=== PATIENT | female | born 1965 | race Caucasian/White ===

== ENCOUNTER 2017-02-15 15:39 | Inpatient (IN) | payer MEDICAID ==
[2017-02-15] MEDS ORDERED: HYDROmorphone 1 MG/ML Syringe IM ONE (16:14)
[2017-02-15] MEDS ORDERED: HYDROmorphone 1 MG/ML Syringe ONE (16:15)
--- NOTE | 2017-02-15 16:53 | EDM.PDOC ---
[id number] 4d ABD PAIN Time Seen by Provider: 02/15/17 16:20 Source: Reports: Patient History Limitations: Reports: No limitations - History of Present Illness INITIAL COMMENTS - FREE TEXT/NARRATIVE: 51-year-old female with intense lower abdominal pain after lifting her 5-year- old grandchild and feeling a sudden sharp pain in her lower anterior abdomen. She was lifting weights yesterday and felt a slight pull but it was tolerable. No nausea or vomiting. 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 bleeding, Musculoskeletal History: Reports: Fracture, Osteoarthritis Neurological History: Reports: Concussion Psychiatric History: Reports: Anxiety, Depression, Panic attack Hematologic History: Reports: Blood transfusion(s) - Infectious Disease History Infectious Disease History: Reports: Chicken pox - Past Surgical History HEENT Surgical History: Reports: None Cardiovascular Surgical History: Reports: None GI Surgical History: Reports: Colonoscopy Female Surgical History: Reports: None Neurological Surgical History: Reports: None Musculoskeletal Surgical History: Reports: None, Other (see below) Other Musculoskeletal Surgeries/Procedures:: Femur pin/screw Social & Family History - Tobacco Use Smoking Status *Q: Never Smoker Years of Tobacco use: 20 Packs/Tins Daily: 0.5 - Caffeine Use Caffeine Use: Reports: Coffee - Alcohol Use Days Per Week of Alcohol Use: 2 Number of Drinks Per Day: 2 Total Drinks Per Week: 4 - Recreational Drug Use Recreational Drug Use: No ED ROS GENERAL - Review of Systems Review Of Systems: See Below Constitutional: Denies: fever, chills Respiratory: Denies: Shortness of Breath, Cough Cardiovascular: Denies: Chest pain GI/Abdominal: Reports: Abdominal pain, Mucous in stool. Denies: Nausea, Vomiting Skin: Reports: no symptoms ED EXAM, GI/ABD - Physical Exam Exam: See Below Exam Limited By: No limitations General Appearance: alert, severe distress Respiratory/Chest: no respiratory distress, lungs clear Cardiovascular: regular rate, rhythm GI/Abdominal: other (Severe palpation tenderness to the right lower abdomen with some firmness) Neurological: alert, oriented Psychiatric: anxious Skin Exam: Warm, Dry Course - Vital Signs Last Recorded V/S: Last Vital Signs Temp 98.9 F 02/16/17 03:30 Pulse 68 02/16/17 03:30 Resp 18 02/16/17 03:30 BP 150/95 H 02/16/17 03:30 Pulse Ox 98 02/16/17 03:30 - Orders/Labs/Meds Orders: Active Orders 24 hr Category Date Time Status Abdomen Pelvis w Cont [CT] Stat Exams 02/15/17 16:52 Taken Medication Orders Hydromorphone HCl (Dilaudid Reverser 15 Mg In Ns 30 Ml) 0 mg IV ASDIRECTED PRN; Protocol PRN 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 Last Admin: 02/15/17 19:42 Dose: 15 mg Dextrose/Lactated Ringer's (Dextrose 5%-Lactated Ringers) 1,000 mls @ 200 mls/ hr IV ASDIRECTED JODIE Last Admin: 02/16/17 05:23 Dose: 200 mls/hr Infusion: 02/16/17 05:20 Dose: 200 mls/hr Admin: 02/16/17 00:20 Dose: 200 mls/hr Naloxone HCl (Narcan) 0.1 mg IV ASDIRECTED PRN PRN Reason: decreased respiratory rate Labs: Laboratory Tests 02/15/17 02/15/17 Range/Units 16:15 16:15 WBC 13.1 H (4.5-11.0) K/uL RBC 3.97 (3.30-5.50) M/uL Hgb 12.2 (12.0-15.0) g/dL Hct 37.4 (36.0-48.0) % MCV 94 (80-98) fL MCH 31 (27-31) pg MCHC 33 (32-36) % Plt Count 398 (150-400) K/uL Neut % (Auto) 74 H (36-66) % Lymph % (Auto) 18 L (24-44) % [place] % (Auto) 6 (2-6) % Eos % (Auto) 1 L (2-4) % Baso % (Auto) 1 (0-1) % Sodium 140 (140-148) mmol/L Potassium 3.5 L (3.6-5.2) mmol/L Chloride 102 (100-108) mmol/L Carbon Dioxide 25 (21-32) mmol/L Anion Gap 16.5 H (5.0-14.0) mmol/L BUN 24 H (7-18) mg/dL Creatinine 1.0 (0.6-1.0) mg/dL Est Cr Clr Drug Dosing 70.76 mL/min Estimated GFR (MDRD) 58 L (>60) Glucose 119 H (74-106) mg/dL Calcium 8.6 (8.5-10.1) mg/dL Meds: Medications Generic Name Dose Route Start Last Admin Trade Name Freq PRN Reason Stop Dose Admin Hydromorphone HCl 0 mg 02/15/17 19:21 02/15/17 19:42 Dilaudid Reverser 15 Mg In Ns 30 Ml IV 15 mg ASDIRECTED PRN Administration PLASTIC PROCESS 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 CONTROL Protocol Dextrose/Lactated Ringer's 1,000 mls @ 200 mls/hr 02/15/17 19:30 02/16/17 05: 23 Dextrose 5%-Lactated Ringers IV 200 mls/hr ASDIRECTED JODIE Administration Naloxone HCl 0.1 mg 02/15/17 19:21 Narcan IV ASDIRECTED PRN decreased respiratory rate Discontinued Medications Generic Name Dose Route Start Last Admin Trade Name Lin PRN Reason Stop Dose Admin Hydromorphone HCl 1 mg 02/15/17 16:14 02/15/17 16:17 Dilaudid IM 02/15/17 16:15 1 mg ONETIME ONE Administration Hydromorphone HCl Confirm 02/15/17 16:15 02/15/17 19:41 Dilaudid Administered 02/15/17 16:16 Not Given Dose 1 mg .ROUTE .STK-MED ONE Sodium Chloride 75 mls @ 3 mls/sec 02/15/17 16:57 02/15/17 17:08 Normal Saline IV 02/15/17 16:58 3 mls/sec ONETIME ONE Administration Iopamidol 114 ml 02/15/17 17:00 02/15/17 17:09 Isovue-300 (61%) IV 150 ml . DIRECTED JODIE Administration Sodium Chloride 10 ml 02/15/17 16:57 02/15/17 17:09 Saline Flush FLUSH 10 ml ONETIME PRN Administration PER RADIOLOGY PROTOCOL - Re-Assessments/Exams Free Text/Narrative Re-Assessment/Exam: 02/15/17 17:52 1 mg of IM Dilaudid was given which gave the patient marked improvement of pain. A CT scan with IV contrast was then done of the lower abdomen which confirmed a rectus abdominal hematoma with a small amount of evidence of continued hemorrhage. These findings were discussed with Dr. Moises Cortes, and he agreed to accept the patient on admission and we'll reevaluate tomorrow morning. She'll be placed as an inpatient with a PLASTIC PROCESS TECHNICIAN for pain control and repeat CBC tomorrow morning, kept n.p.o. after midnight. Departure - Departure Time of Disposition: 19:01 Disposition: Admitted As Inpatient 66 Condition: fair Clinical Impression: Rectus sheath hematoma Qualifiers: Encounter type: initial encounter Qualified Code(s): S30.1XXA - Contusion of abdominal wall, initial encounter - My Orders Last 24 Hours: My Active Orders 02/15/17 16:52 Abdomen Pelvis w Cont [CT] Stat - Assessment/Plan Last 24 Hours: My Active Orders 02/15/17 16:52 Abdomen Pelvis w Cont [CT] Stat
[2017-02-15] MEDS ORDERED: Sodium Chloride 0.9% 10 ML Syringe FLUSH PRN (16:57)
[2017-02-15] MEDS ORDERED: Sodium Chloride 0.9% 75 ML IV ONE (16:57)
[2017-02-15] MEDS ORDERED: Iopamidol 612 MG/ML 150 ML Bottle IV SCH (17:00)
[2017-02-15] MEDS ORDERED: HYDROmorphone/Normal Saline 15 MG/30 ML PCA IV PRN (19:21)
[2017-02-15] MEDS ORDERED: Naloxone 0.4 MG/ML SDV IV PRN (19:21)
[2017-02-16] MEDS: Dextrose 5%-Lactated Ringers 1,000 ML IV SCH ×2 (00:20→05:23)
[2017-02-16] MEDS ORDERED: HYDROmorphone 2 MG Tab PO PRN (08:10)
[2017-02-16 09:03] VITALS: BP 136/85
--- NOTE | 2017-02-17 14:38 | DISCH ---
FINAL DIAGNOSIS: Right rectus hematoma. SECONDARY DIAGNOSIS: 1. History of hypertension. 2. History of gastroesophageal reflux disease. 3. History of dysfunctional uterine bleeding. OPERATIVE PROCEDURES: None. HOSPITAL COURSE: This is a 51-year-old who by history yesterday developed a spontaneous rectus hematoma after lifting her grandchild. This has temporarily subsided, but then became quite severe in terms of pain yesterday and presented to the emergency room. CT scan was obtained, which showed a right rectus hematoma. There was some arterial blush on the CT scan, indicating some ongoing bleeding. This has stopped. Presently, her hemoglobin is 10.7, and she appears to be completely comfortable. There is some vague fullness in the right lower rectus muscle, and the plan at this point will be to discharge home. She will be instructed to stay off work until after the appointment this coming Saturday and avoid vigorous activity or heavy lifting, and in the meantime, she is to report to emergency room once again if she develops severe pain once again, at which time we would likely proceed with limited operation and control of bleeding. Otherwise, she will be following up with Dr. Cortes in [facility] on 02/20/2017 with a hemoglobin and hematocrit to be obtained at that time.
== END 2017-02-16 09:59 | disposition home or self-care (01) | DRG 605 ==
LOC: JP.ED 15:39 → JP.2SS 18:23
PROVIDERS: ADMIT Surgery; ATTEND Surgery
DX: S30.1XXA Contusion of abdominal wall, initial encounter (principal); I10 Essential (primary) hypertension; K21.9 Gastro-esophageal reflux disease without esophagitis; N93.8 Other specified abnormal uterine and vaginal bleeding; M19.90 Unspecified osteoarthritis, unspecified site; F41.8 Other specified anxiety disorders
CPT/HCPCS: 36415; 74177; 80048; 85025; 94762; 96372; 99285-25; A9270-GY; J1170; J7030; J7042; J7050

== ENCOUNTER 2017-04-10 13:48 | Emergency (ER) | payer MEDICAID ==
[2017-04-10] MEDS ORDERED: LORazepam 0.5 MG Tab PO ONE (14:19)
--- NOTE | 2017-04-10 14:23 | EDM.PDOC ---
ED HPI GENERAL MEDICAL PROBLEM - General Chief Complaint: Cardiovascular Problem Stated Complaint: SIDE-EFFECTS OF MEDS, HEART PALPITATIONS Time Seen by Provider: 04/10/17 14:10 Source of Information: Reports: Patient, RN Notes Reviewed History Limitations: Reports: No Limitations - History of Present Illness INITIAL COMMENTS - FREE TEXT/NARRATIVE: 51-year-old female presents emergency department today with concern for palpitations and medication side effect she recently started on voltarin for arthritic knee pain, states she stopped taking the medication last night she feels as though she's having heart palpitations she is concerned about anxiety as well no nausea vomiting or shortness of breath or chest pain - Related Data Allergies Allergy/AdvReac Type Severity Reaction Status Date / Time No Known Allergies Allergy Verified 08/29/16 10:26 Home Meds: Home Meds Hydrochlorothiazide [Hydrochlorothiazide] 25 mg PO DAILY 02/15/17 [History] buPROPion [Wellbutrin SR] 150 mg PO ASDIRECTED 02/15/17 [History] Diclofenac Sodium [Diclofenac Sodium] 75 mg PO BID 04/10/17 [History] Past Medical History HEENT History: Reports: Impaired Vision Cardiovascular History: Reports: Hypertension Gastrointestinal History: Reports: Colon Polyp, GERD 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: 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, Musculoskeletal History: Reports: Arthritis Neurological History: Reports: Concussion Psychiatric History: Reports: Anxiety, Depression, Panic Attack Hematologic History: Reports: Blood Transfusion(s) - Infectious Disease History Infectious Disease History: Reports: Chicken Pox - Past Surgical History Cardiovascular Surgical History: Reports: None Female Surgical History: Reports: None Neurological Surgical History: Reports: None Musculoskeletal Surgical History: Reports: Other (See Below) Other Musculoskeletal Surgeries/Procedures:: femer surgery Social & Family History - Family History Family Medical History: Noncontributory - Tobacco Use Smoking Status *Q: Light Tobacco Smoker Years of Tobacco use: 20 Packs/Tins Daily: 0.1 - Caffeine Use Caffeine Use: Reports: Coffee, Soda - Alcohol Use Days Per Week of Alcohol Use: 2 Number of Drinks Per Day: 2 Total Drinks Per Week: 4 - Recreational Drug Use Recreational Drug Use: No ED ROS GENERAL - Review of Systems Review Of Systems: See Below Constitutional: Reports: No Symptoms HEENT: Reports: No Symptoms Respiratory: Reports: No Symptoms Cardiovascular: Reports: Palpitations GI/Abdominal: Reports: No Symptoms : Reports: No Symptoms Musculoskeletal: Reports: No Symptoms Skin: Reports: No Symptoms Neurological: Reports: No Symptoms ED EXAM, GENERAL - Physical Exam Exam: See Below Exam Limited By: No Limitations General Appearance: Alert, WD/WN, No Apparent Distress Head: Atraumatic, Normocephalic Neck: Normal Inspection, Supple, Non-Tender, Full Range of Motion Respiratory/Chest: No Respiratory Distress, Lungs Clear, Normal Breath Sounds, No Accessory Muscle Use Cardiovascular: Regular Rate, Rhythm, No Murmur Course - Vital Signs Last Recorded V/S: Last Vital Signs Temp 97.5 F 04/10/17 14:05 Pulse 72 04/10/17 15:27 Resp 14 04/10/17 15:27 BP 133/37 L 04/10/17 15:27 Pulse Ox 97 04/10/17 15:27 - Orders/Labs/Meds Orders: Active Orders 24 hr Category Date Time Status EKG Documentation Completion [RC] ASDIRECTED Care 04/10/17 14:21 Active EKG 12 Lead [EK] Stat Ther 04/10/17 14:20 Ordered Labs: Laboratory Tests 04/10/17 04/10/17 Range/Units 14:19 14:19 WBC 6.3 (4.5-11.0) K/uL RBC 4.06 (3.30-5.50) M/uL Hgb 12.5 D (12.0-15.0) g/dL Hct 38.4 (36.0-48.0) % MCV 95 (80-98) fL MCH 31 (27-31) pg MCHC 33 (32-36) % Plt Count 313 (150-400) K/uL Neut % (Auto) 61 (36-66) % Lymph % (Auto) 30 (24-44) % [place] % (Auto) 6 (2-6) % Eos % (Auto) 2 (2-4) % Baso % (Auto) 1 (0-1) % Sodium 142 (140-148) mmol/L Potassium 3.8 (3.6-5.2) mmol/L Chloride 105 (100-108) mmol/L Carbon Dioxide 30 (21-32) mmol/L Anion Gap 7.4 (5.0-14.0) mmol/L BUN 20 H (7-18) mg/dL Creatinine 0.9 (0.6-1.0) mg/dL Est Cr Clr Drug Dosing 77.28 mL/min Estimated GFR (MDRD) > 60 (>60) Glucose 99 (74-106) mg/dL Calcium 8.6 (8.5-10.1) mg/dL Meds: Medications Discontinued Medications Generic Name Dose Route Start Last Admin Trade Name Lin PRN Reason Stop Dose Admin Clonazepam 0.5 mg 04/10/17 14:36 04/10/17 14:44 Klonopin PO 04/10/17 14:37 0.5 mg ONETIME ONE Administration Hydroxyzine HCl 25 mg 04/10/17 14:24 04/10/17 14:45 Atarax PO 04/10/17 14:25 Not Given ONETIME ONE Lorazepam 0.5 mg 04/10/17 14:19 04/10/17 14:45 Ativan PO 04/10/17 14:20 Not Given ONETIME ONE Departure - Departure Time of Disposition: 15:34 Disposition: Home, Self-Care 01 Condition: Good Clinical Impression: Premature ventricular contraction Forms: ED Department Discharge Additional Instructions: Try diluting your caffeine injection, Please followup with your primary care provider in 3-5 days if not better, please call return to the emergency department with worsening of symptoms. - My Orders Last 24 Hours: My Active Orders 04/10/17 14:20 EKG 12 Lead [EK] Stat 04/10/17 14:21 EKG Documentation Completion [RC] ASDIRECTED - Assessment/Plan Last 24 Hours: My Active Orders 04/10/17 14:20 EKG 12 Lead [EK] Stat 04/10/17 14:21 EKG Documentation Completion [RC] ASDIRECTED Plan: Assessment Acuity = acute Site and laterality = palpitations Etiology = probably related to PVCs Manifestations = none Location of injury = home Lab values = CBC, BMP unremarkable EKG shows sinus rhythm with multiple PVCs Plan I did discuss lab results and EKG results with her she did admit to a moderate amount of caffeine ingestion, I'm going to provide her with information on PVCs have follow-up with her primary care in 3-5 days if no improvement will have her stop the Voltaren for now Patient was in agreement with the plan all questions were answered, they were instructed to return to the emergency department or call for worsening symptoms. This note was dictated using [employer] voice recognition software please call with any questions.
[2017-04-10] MEDS ORDERED: hydrOXYzine HCl 25 MG Tab PO ONE (14:24)
[2017-04-10] MEDS ORDERED: ClonazePAM 0.5 MG Tab PO ONE (14:36)
[2017-04-10 15:28] VITALS: BP 133/37
== END 2017-04-10 15:48 | disposition home or self-care (01) ==
LOC: JP.ED 13:48
DX: I49.3 Ventricular premature depolarization (principal); F17.210 Nicotine dependence, cigarettes, uncomplicated; I10 Essential (primary) hypertension; K21.9 Gastro-esophageal reflux disease without esophagitis; F41.9 Anxiety disorder, unspecified; F32.9 Major depressive disorder, single episode, unspecified; Z98.890 Other specified postprocedural states; Z79.899 Other long term (current) drug therapy
CPT/HCPCS: 36415; 80048; 85025; 93005; 99284; A9270

== ENCOUNTER 2019-06-09 12:21 | Emergency (ER) | payer MEDICAID ==
[2019-06-09] MEDS ORDERED: EPINEPHrine 1 MG/ML SDV SUBCUT ONE (12:28)
[2019-06-09] MEDS ORDERED: Sodium Chloride 0.9% 10 ML Syringe FLUSH PRN (12:28)
[2019-06-09] MEDS ORDERED: diphenhydrAMINE 50 MG/ML SDV IVPUSH ONE (12:29)
[2019-06-09] MEDS ORDERED: methylPREDNISolone Sodium Succinate 125 MG/2 ML SDV IVPUSH ONE (12:29)
--- NOTE | 2019-06-09 12:47 | EDM.PDOC ---
ED HPI GENERAL MEDICAL PROBLEM - General Chief Complaint: Bite:Animal, Insect Stated Complaint: BEE STING Time Seen by Provider: 06/09/19 12:30 Source of Information: Reports: Patient History Limitations: Reports: No Limitations - History of Present Illness INITIAL COMMENTS - FREE TEXT/NARRATIVE: 53-year-old female without any previous systemic allergic reactions to bee stings, was stung on the back of the right hand less than one half hour prior to coming into the emergency room. She has diffuse erythema, hives formation and itching. No shortness of breath. Onset: Sudden Duration: Hour(s): (Within the last hour) Associated Symptoms: Denies: Headaches, Loss of Appetite, Malaise, Nausea/ Vomiting, Shortness of Breath, Weakness Right Hand Pain Score (Numeric/FACES): 4 - Related Data Allergies Allergy/AdvReac Type Severity Reaction Status Date / Time bee venom protein (honey bee) Allergy Hives Verified 06/09/19 12:44 Home Meds: Home Meds Hydrochlorothiazide 25 mg PO DAILY 02/15/17 [History] Estradiol 0.5 mg PO DAILY 06/09/19 [History] metroNIDAZOLE [Metronidazole] 500 mg PO DAILY 06/09/19 [History] Past Medical History HEENT History: Reports: Impaired Vision Cardiovascular History: Reports: Hypertension Gastrointestinal History: Reports: Colon Polyp, GERD 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, Musculoskeletal History: Reports: Arthritis Neurological History: Reports: Concussion Psychiatric History: Reports: Anxiety, Depression, Panic Attack Hematologic History: Reports: Blood Transfusion(s) - Infectious Disease History Infectious Disease History: Reports: Chicken Pox - Past Surgical History Cardiovascular Surgical History: Reports: None Female Surgical History: Reports: None Neurological Surgical History: Reports: None Musculoskeletal Surgical History: Reports: Other (See Below) Other Musculoskeletal Surgeries/Procedures:: femer surgery Social & Family History - Family History Family Medical History: Noncontributory - Caffeine Use Caffeine Use: Reports: Coffee, Soda ED ROS GENERAL - Review of Systems Review Of Systems: See Below Constitutional: Denies: Fever, Chills HEENT: Reports: No Symptoms Respiratory: Reports: No Symptoms Cardiovascular: Denies: Chest Pain GI/Abdominal: Denies: Nausea, Vomiting Skin: Reports: Erythema, Urticaria Neurological: Denies: Headache Psychiatric: Reports: No Symptoms ED EXAM, ANIMAL BITE - Physical Exam Exam: See Below Exam Limited By: No Limitations General Appearance: Alert, No Apparent Distress, Anxious (Patient is anxious about her reaction but not distressed) Eye Exam: Bilateral Eye: Other (She has developed slight amount of periorbital edema) Throat/Mouth: Normal Inspection Head: Facial Swelling (Mild diffuse facial swelling is present) Respiratory/Chest: No Respiratory Distress, Lungs Clear Cardiovascular: Regular Rate, Rhythm, Tachycardia Extremities: Other (Diffuse erythema and urticaria of the extremities and trunk) Neurological: Alert, Oriented Psychiatric: Anxious Course - Vital Signs Last Recorded V/S: Last Vital Signs Temp 97.7 F 06/09/19 12:29 Pulse 91 06/09/19 12:56 Resp 18 06/09/19 12:56 BP 153/90 H 06/09/19 12:56 Pulse Ox 92 L 06/09/19 12:56 - Orders/Labs/Meds Orders: Active Orders 24 hr Category Date Time Status Saline Lock Insert [OM.PC] Routine Oth 06/09/19 12:28 Ordered Meds: Medications Discontinued Medications Generic Name Dose Route Start Last Admin Trade Name Lin PRN Reason Stop Dose Admin Diphenhydramine HCl 25 mg 06/09/19 12:29 06/09/19 12:37 Benadryl IVPUSH 06/09/19 12:30 25 mg ONETIME ONE Administration Epinephrine HCl 0.3 mg 06/09/19 12:28 06/09/19 12:32 Adrenalin SUBCUT 06/09/19 12:29 0.3 mg ONETIME ONE Administration Methylprednisolone Sodium Succinate 125 mg 06/09/19 12:29 06/09/19 12:40 Solu-Medrol IVPUSH 06/09/19 12:30 125 mg ONETIME ONE Administration Sodium Chloride 10 ml 06/09/19 12:28 06/09/19 12:41 Saline Flush FLUSH 10 ml ASDIRECTED PRN Administration Keep Vein Open - Re-Assessments/Exams Free Text/Narrative Re-Assessment/Exam: 06/09/19 12:46 Patient was given 0.3 mg of subcutaneous epinephrine, a saline lock was started and she was given 25 mg of IV Benadryl and 125 mg of IV Solu-Medrol. She remained stable. 06/09/19 13:10 Over the course of the next 30 minutes the patient markedly improved. She was given some fluids to drink, a note to be off work today, and a prescription for EpiPens to use in the future. Departure - Departure Time of Disposition: 13:40 Disposition: Home, Self-Care 01 Clinical Impression: Systemic reaction to bee sting Qualifiers: Encounter type: initial encounter Injury intent: accidental or unintentional Qualified Code(s): T63.441A - Toxic effect of venom of bees, accidental ( unintentional), initial encounter - Discharge Information Instructions: Bee, Wasp, or Hornet Sting, Adult Referrals: PCP,None [Primary Care Provider] - Forms: ED Department Discharge Care Plan Goals: Repeat Benadryl 50 mg every 4-6 hours for continued rash or itching. Return anytime if worsening such as difficulty breathing or swelling of the tongue or throat. Fill prescription for EpiPen and use as directed. - My Orders Last 24 Hours: My Active Orders 06/09/19 12:28 Saline Lock Insert [OM.PC] Routine - Assessment/Plan Last 24 Hours: My Active Orders 06/09/19 12:28 Saline Lock Insert [OM.PC] Routine
[2019-06-09 12:57] VITALS: BP 153/90; PULSE 91
== END 2019-06-09 13:35 | disposition home or self-care (01) ==
LOC: JP.ED 12:21
DX: T63.441A Toxic effect of venom of bees, accidental (unintentional), initial encounter (principal); I10 Essential (primary) hypertension; Z79.899 Other long term (current) drug therapy; Z91.030 Bee allergy status
CPT/HCPCS: 96372; 96374; 96375; 99282; J0171; J1200; J2930

== ENCOUNTER 2020-12-05 07:38 | Inpatient (IN) | payer MEDICAID ==
[~2020-12-05 07:38] MED LIST: Midazolam 1 MG/ML 2 ML SDV ONE; Propofol 200 MG/20 ML SDV ONE; fentaNYL 100 MCG/2 ML SDV ONE
[2020-12-05] MEDS: Nozin Nasal Sanitizer NASBOTH SCH ×3 (08:10→20:38)
[2020-12-05] MEDS ORDERED: Lactated Ringers 1,000 ML IV SCH (08:15)
[2020-12-05] MEDS ORDERED: Lactated Ringers 500 ML IV ONE (08:30)
[2020-12-05] MEDS ORDERED: Povidone-Iodine 10% Soln 118.25 ML Bottle ONE (08:48)
[2020-12-05] MEDS ORDERED: ceFAZolin 2 GM in Premix Bag 1 BAG IV ONE (09:00)
[2020-12-05] MEDS ORDERED: diphenhydrAMINE 50 MG/ML SDV ONE (09:58)
[2020-12-05] MEDS ORDERED: Lactated Ringers 0 ML ONE (10:18)
[2020-12-05] MEDS ORDERED: Ondansetron 4 MG/2 ML SDV ONE (10:19)
[2020-12-05] MEDS ORDERED: Dexamethasone 4 MG/ML SDV ONE (10:19)
[2020-12-05] MEDS ORDERED: Lactated Ringers 1,000 ML ONE (10:19)
[2020-12-05] MEDS ORDERED: Famotidine 20 MG/2 ML SDV ONE (10:20)
[2020-12-05] MEDS ORDERED: fentaNYL 100 MCG/2 ML SDV ONE (10:33)
[2020-12-05] MEDS ORDERED: Midazolam 1 MG/ML 2 ML SDV ONE (10:33)
[2020-12-05] MEDS ORDERED: Propofol 200 MG/20 ML SDV ONE (11:06)
[2020-12-05] MEDS ORDERED: Acetaminophen 325 MG Tab PO PRN (11:49)
--- NOTE | 2020-12-05 12:47 | CR ---
Knee 1V or 2V Lt CLINICAL HISTORY: Postop arthroplasty FINDINGS: Patient is status post 3 component total arthroplasty. Components appear well seated. There is intra-articular and subcutaneous air. Patient is a fixation plate in the mid femur. IMPRESSION: STATUS post recent total left knee arthroplasty
[2020-12-05] MEDS: Sodium Chloride 0.9% 1,000 ML IV SCH ×2 (13:24→23:24)
[2020-12-05] MEDS: Acetaminophen/oxyCODONE 325-5 MG Tab PO PRN ×3 (14:26→23:21)
[2020-12-05] MEDS: Ketorolac 30 MG/ML SDV IVPUSH SCH ×2 (14:27→21:30)
[2020-12-05] MEDS: Morphine 2 MG/ML SYRINGE IVPUSH PRN ×5 (15:56→21:36)
[2020-12-05] MEDS: Docusate Sodium 100 MG Cap PO SCH (20:39)
[2020-12-05] MEDS ORDERED: Nozin Nasal Sanitizer NASBOTH SCH (21:00)
[2020-12-05] MEDS ORDERED: Calcium Carbonate 500 MG Tab.Chew PO PRN (21:13)
[2020-12-05] MEDS: ClonazePAM 0.5 MG Tab PO PRN (21:30)
[2020-12-06] MEDS: Acetaminophen/oxyCODONE 325-5 MG Tab PO PRN ×4 (03:09→23:41)
[2020-12-06] MEDS: Ketorolac 30 MG/ML SDV IVPUSH SCH ×3 (05:59→22:07)
[2020-12-06] MEDS: Acetaminophen/HYDROcodone 325-5 MG Tab PO PRN ×2 (07:10→11:36)
--- NOTE | 2020-12-06 08:46 | PCM.SURGPN ---
- General Info Date of Service: 12/06/20 Date of Surgery/Procedure: 12/05/20 POD#: 1 Post-Op Diagnosis: left knee osteoarthritis Functional Status: Reports: Pain Controlled, Tolerating Diet, Ambulating, Urinating - Review of Systems General: Reports: No Symptoms HEENT: Reports: No Symptoms Pulmonary: Reports: No Symptoms Cardiovascular: Reports: No Symptoms Gastrointestinal: Reports: No Symptoms Genitourinary: Reports: No Symptoms Musculoskeletal: Reports: Leg Pain (bilateral ), Joint Pain (left knee ) Psychiatric: Reports: Anxiety - Patient Data Vitals - Most Recent: Last Vital Signs Temp 97.4 F 12/06/20 03:10 Pulse 75 12/06/20 03:10 Resp 16 12/06/20 03:10 BP 152/75 H 12/06/20 03:10 Pulse Ox 100 12/06/20 03:10 Weight - Most Recent: 177 lb I&O - Last 24 Hours: Intake & Output 12/05/20 12/06/20 12/06/20 22:59 06:59 14:59 Intake Total 650 2800 Output Total 500 1275 Balance 150 1525 Lab Results Last 24 Hrs: Laboratory Results - last 24 hr 12/05/20 Range/Units 07:55 Blood Type O POSITIVE Gel Antibody Screen Negative Med Orders - Current: Current Medications Acetaminophen (Tylenol) 650 mg PO Q4H PRN PRN Reason: Pain/Fever Hydrocodone Bitart/Acetaminophen ([place] 325-5 Mg) 2 tab PO Q4H PRN PRN Reason: Pain (mild 1-3) Last Admin: 12/06/20 07:10 Dose: 2 tab Documented by: Bandage/Support Products ( Nasal Athletics Teacher) 1 applic NASBOTH BID [facility] Last Admin: 12/05/20 20:38 Dose: 1 applic Documented by: Bupropion HCl (Wellbutrin Xl) 300 mg PO DAILY [facility] Calcium Carbonate/Glycine (Tums) 1,000 mg PO Q2H PRN PRN Reason: Indigestion Last Admin: 12/05/20 21:29 Dose: 1,000 mg Documented by: Clonazepam (Klonopin) 0.5 mg PO BID PRN PRN Reason: Anxiety Last Admin: 12/05/20 21:30 Dose: 0.5 mg Documented by: Docusate Sodium (Colace) 100 mg PO BID [facility] Last Admin: 12/05/20 20:39 Dose: 100 mg Documented by: Enoxaparin Sodium (Lovenox) 30 mg SUBCUT DAILY [facility] Estradiol (Estradiol) 0.5 mg PO DAILY [facility] Hydrochlorothiazide (Hydrochlorothiazide) 25 mg PO DAILY [facility] Sodium Chloride (Normal Saline) 1,000 mls @ 125 mls/hr IV ASDIRECTED [facility] Last Admin: 12/05/20 23:24 Dose: 125 mls/hr Documented by: Vancomycin HCl 1 gm/ Sodium (Chloride) 250 mls @ 250 mls/hr IV Q12H [facility] Stop: 12/06/20 14:59 Last Admin: 12/06/20 03:08 Dose: 250 mls/hr Documented by: Ketorolac Tromethamine (Toradol) 30 mg IVPUSH Q8H [facility] Stop: 12/07/20 06:01 Last Admin: 12/06/20 05:59 Dose: 30 mg Documented by: Magnesium Hydroxide (Milk Of Magnesia) 30 ml PO BID PRN PRN Reason: Constipation Morphine Sulfate (Morphine) 2 mg IVPUSH Q1H PRN PRN Reason: Breakthrough Pain Last Admin: 12/05/20 21:36 Dose: 2 mg Documented by: Ondansetron HCl (Zofran) 4 mg IVPUSH Q6H PRN PRN Reason: Nausea/Vomiting Oxycodone/Acetaminophen (Percocet 325-5 Mg) 1 - 2 tab PO Q4H PRN PRN Reason: Pain (moderate 4-6) Last Admin: 12/06/20 03:09 Dose: 2 tab Documented by: Discontinued Medications Dexamethasone (Decadron) Confirm Administered Dose 4 mg .ROUTE .STK-MED ONE Stop: 12/05/20 10:20 Diphenhydramine HCl (Benadryl) Confirm Administered Dose 50 mg .ROUTE .STK-MED ONE Stop: 12/05/20 09:59 Famotidine (Pepcid) 20 mg .ROUTE .STK-MED ONE Stop: 12/05/20 10:21 Fentanyl (Sublimaze) Confirm Administered Dose 100 mcg .ROUTE .STK-MED ONE Stop: 12/05/20 07:25 Fentanyl (Sublimaze) Confirm Administered Dose 100 mcg .ROUTE .STK-MED ONE Stop: 12/05/20 10:34 Cefazolin Sodium/Dextrose 2 gm (/ Premix) 50 mls @ 100 mls/hr IV ONETIME ONE Stop: 12/05/20 09:29 Last Admin: 12/05/20 09:46 Dose: 100 mls/hr Documented by: Lactated Ringer's (Ringers, Lactated) 500 mls @ 999 mls/hr IV ASDIRECTED ONE Stop: 12/05/20 09:00 Lactated Ringer's (Ringers, Lactated) 1,000 mls @ 100 mls/hr IV ASDIRECTED JODIE Last Admin: 12/05/20 08:38 Dose: 100 mls/hr Documented by: Lactated Ringer's (Ringers, Lactated) Confirm Administered Dose 1,000 mls @ as directed .ROUTE .STK-MED ONE Stop: 12/05/20 10:19 Lactated Ringer's (Ringers, Lactated) Confirm Administered Dose 1,000 mls @ as directed .ROUTE .STK-MED ONE Stop: 12/05/20 10:20 Midazolam HCl (Versed 1 Mg/Ml) Confirm Administered Dose 2 mg .ROUTE .STK-MED ONE Stop: 12/05/20 07:25 Midazolam HCl (Versed 1 Mg/Ml) Confirm Administered Dose 2 mg .ROUTE .STK-MED ONE Stop: 12/05/20 10:34 Ondansetron HCl (Zofran) Confirm Administered Dose 4 mg .ROUTE .STK-MED ONE Stop: 12/05/20 10:20 Povidone Iodine (Betadine 10% Soln) Confirm Administered Dose 1 ml .ROUTE .STK- MED ONE Stop: 12/05/20 08:49 Last Admin: 12/05/20 11:02 Dose: 30 ml Documented by: Propofol (Diprivan 20 Ml) Confirm Administered Dose 200 mg .ROUTE .STK-MED ONE Stop: 12/05/20 07:25 Propofol (Diprivan 20 Ml) Confirm Administered Dose 200 mg .ROUTE .STK-MED ONE Stop: 12/05/20 11:07 - Exam Wound/Incisions: Dressing Dry and Intact, No Drainage General: Alert, Oriented, Cooperative Extremities: Pedal Edema (left ), Joint Swelling (left knee ), Leg Pain (left ), Limited Range of Motion (left knee ) Psy/Mental Status: Alert, Anxious Sepsis Event Note - Evaluation Sepsis Screening Result: No Definite Risk - Focused Exam Vital Signs: Vital Signs Temp Pulse Resp BP Pulse Ox 12/06/20 03:10 97.4 F 75 16 152/75 H 100 12/05/20 23:25 97.9 F 87 18 165/90 H 98 - Problem List & Annotations (1) Status post total left knee replacement SNOMED Code(s): 8185847159809, 0829498674731 Code(s): Z96.652 - PRESENCE OF LEFT ARTIFICIAL KNEE JOINT Status: Acute Current Visit: Yes - Problem List Review Problem List Initiated/Reviewed/Updated: Yes - My Orders Last 24 Hours: Active Orders 24 hr Category Date Time Status Patient Status [ADT] Routine ADT 12/05/20 11:49 Active Ambulate [RC] QID Care 12/05/20 11:49 Active Antiembolic Devices [RC] .Routine Care 12/05/20 11:50 Active Head of Bed Elevation [RC] ASDIRECTED Care 12/05/20 11:49 Active May Shower [RC] ASDIRECTED Care 12/05/20 11:49 Active Neurovascular Check [RC] Q4H Care 12/05/20 11:49 Active Notify Provider Vital Signs [RC] ASDIRECTED Care 12/05/20 11:49 Active Oxygen Therapy [RC] PRN Care 12/05/20 11:49 Active RT Incentive Spirometry [RC] Q1HWA Care 12/05/20 11:49 Active Up to Chair [RC] QID Care 12/05/20 11:49 Active Vital Signs [RC] Q4H Care 12/05/20 11:49 Active Wound Care [RC] Q12H Care 12/05/20 11:49 Active Consult to Case Management/Splitter Operator [CONS] Cons 12/05/20 11:49 Active Routine OT Evaluation and Treatment [CONS] Routine Cons 12/06/20 07:39 Active PT Evaluation and Treatment [CONS] Routine Cons 12/05/20 11:49 Active PT Evaluation and Treatment [CONS] Routine Cons 12/05/20 11:49 Active Regular Diet [DIET] Diet 12/05/20 Lunch Active Acetaminophen [TylenoL] Med 12/05/20 11:49 Active 650 mg PO Q4H PRN Acetaminophen/HYDROcodone [[place] 325-5 MG] Med 12/05/20 11:49 Active 2 tab PO Q4H PRN Acetaminophen/oxyCODONE [Percocet 325-5 MG] Med 12/05/20 11:49 Active 1 - 2 tab PO Q4H PRN Calcium Carbonate [Tums] Med 12/05/20 21:13 Active 1,000 mg PO Q2H PRN ClonazePAM [KlonoPIN] Med 12/05/20 14:11 Active 0.5 mg PO BID PRN Docusate Sodium [Colace] Med 12/05/20 21:00 Active 100 mg PO BID Enoxaparin [Lovenox] Med 12/06/20 09:00 Active 30 mg SUBCUT DAILY Ketorolac [Toradol] Med 12/05/20 14:00 Active 30 mg IVPUSH Q8H Magnesium Hydroxide [Milk of Magnesia] Med 12/05/20 11:49 Active 30 ml PO BID PRN Morphine Med 12/05/20 11:49 Active 2 mg IVPUSH Q1H PRN Nozin [ Nasal Athletics Teacher] Med 12/05/20 08:00 Active 1 applic NASBOTH BID Ondansetron [Zofran] Med 12/05/20 11:49 Active 4 mg IVPUSH Q6H PRN Sodium Chloride 0.9% [Normal Saline] 1,000 ml Med 12/05/20 12:00 Active IV ASDIRECTED Vancomycin 1 gm Med 12/05/20 14:00 Active Sodium Chloride 0.9% [Normal Saline] 250 ml IV Q12H buPROPion [Wellbutrin XL] Med 12/06/20 09:00 Active 300 mg PO DAILY estradioL Med 12/06/20 09:00 Active 0.5 mg PO DAILY hydroCHLOROthiazide Med 12/06/20 09:00 Active 25 mg PO DAILY Antiembolic Hose [OM.PC] Routine Oth 12/05/20 11:49 Ordered DVT/VTE Prophylaxis Reflex [OM.PC] Routine Oth 12/05/20 11:49 Ordered Ice Therapy [OM.PC] Per Unit Routine Oth 12/05/20 11:49 Ordered Medication Continuation Instructions [OM.PC] Per Unit Oth 12/05/20 11:49 Ordered Routine Oral Care [OM.PC] Routine Oth 12/05/20 11:49 Ordered Sequential Compression Device [OM.PC] Routine Oth 12/05/20 11:49 Ordered Resuscitation Status Routine Resus Stat 12/05/20 11:49 Ordered Medication Orders Acetaminophen (Tylenol) 650 mg PO Q4H PRN PRN Reason: Pain/Fever Hydrocodone Bitart/Acetaminophen ([place] 325-5 Mg) 2 tab PO Q4H PRN PRN Reason: Pain (mild 1-3) Last Admin: 12/06/20 07:10 Dose: 2 tab Documented by: AMAN Bandage/Support Products ( Nasal Athletics Teacher) 1 applic NASBOTH BID [facility] Last Admin: 12/05/20 20:38 Dose: 1 applic Documented by: Admin: 12/05/20 13:18 Dose: Not Given Documented by: Admin: 12/05/20 08:10 Dose: 1 applic Documented by: JEWEL Bupropion HCl (Wellbutrin Xl) 300 mg PO DAILY [facility] Calcium Carbonate/Glycine (Tums) 1,000 mg PO Q2H PRN PRN Reason: Indigestion Last Admin: 12/05/20 21:29 Dose: 1,000 mg Documented by: AMADO Clonazepam (Klonopin) 0.5 mg PO BID PRN PRN Reason: Anxiety Last Admin: 12/05/20 21:30 Dose: 0.5 mg Documented by: AMADO Docusate Sodium (Colace) 100 mg PO BID [facility] Last Admin: 12/05/20 20:39 Dose: 100 mg Documented by: AMADO Enoxaparin Sodium (Lovenox) 30 mg SUBCUT DAILY [facility] Estradiol (Estradiol) 0.5 mg PO DAILY [facility] Hydrochlorothiazide (Hydrochlorothiazide) 25 mg PO DAILY [facility] Sodium Chloride (Normal Saline) 1,000 mls @ 125 mls/hr IV ASDIRECTED [facility]ODIE Last Admin: 12/05/20 23:24 Dose: 125 mls/hr Documented by: Infusion: 12/05/20 21:24 Dose: 125 mls/hr Documented by: Admin: 12/05/20 13:24 Dose: 125 mls/hr Documented by: GUANAKITO Vancomycin HCl 1 gm/ Sodium (Chloride) 250 mls @ 250 mls/hr IV Q12H [facility] Stop: 12/06/20 14:59 Last Admin: 12/06/20 03:08 Dose: 250 mls/hr Documented by: Infusion: 12/05/20 15:29 Dose: 250 mls/hr Documented by: Admin: 12/05/20 14:29 Dose: 250 mls/hr Documented by: GUANAKITO Ketorolac Tromethamine (Toradol) 30 mg IVPUSH Q8H [facility] Stop: 12/07/20 06:01 Last Admin: 12/06/20 05:59 Dose: 30 mg Documented by: Admin: 12/05/20 21:30 Dose: 30 mg Documented by: Admin: 12/05/20 14:27 Dose: 30 mg Documented by: GUANAKITO Magnesium Hydroxide (Milk Of Magnesia) 30 ml PO BID PRN PRN Reason: Constipation Morphine Sulfate (Morphine) 2 mg IVPUSH Q1H PRN PRN Reason: Breakthrough Pain Last Admin: 12/05/20 21:36 Dose: 2 mg Documented by: Admin: 12/05/20 18:43 Dose: 2 mg Documented by: Admin: 12/05/20 17:15 Dose: 2 mg Documented by: Admin: 12/05/20 15:56 Dose: 2 mg Documented by: AMADO Ondansetron HCl (Zofran) 4 mg IVPUSH Q6H PRN PRN Reason: Nausea/Vomiting Oxycodone/Acetaminophen (Percocet 325-5 Mg) 1 - 2 tab PO Q4H PRN PRN Reason: Pain (moderate 4-6) Last Admin: 12/06/20 03:09 Dose: 2 tab Documented by: Admin: 12/05/20 23:21 Dose: 2 tab Documented by: Admin: 12/05/20 18:43 Dose: 2 tab Documented by: Admin: 12/05/20 14:26 Dose: 2 tab Documented by: GUANAKITO - Assessment Assessment (Free Text/Narrative):: Assessment: Patient is a 55 y/o female, s/p left total knee replacement, POD #1. Prior to surgery, patient had a reaction to the pre-op antibiotic, Cefazolin. Patients whole body turned red and she became itchy. Benadryl and Decadron were administered by anesthesia. Patient was closely monitored; she did not have trouble breathing, nor any airway concerns. The redness did start to fade after Benadryl and Decadron administration. Proceeded with left total knee replacement which went well, no further complications. Vancomycin selected as a prophylactic antibiotic afterwards and Cefazolin was documented as an allergy in her chart. Reports pain was severe yesterday following the operation, but feels pain is better managed this morning. Tolerating regular diet. No reports of nausea/emesis. Patient reports anxiety returning home; feels she doesnt have a good support system there. Is worried about not having help with activities around the house and reports no one can give her rides to outpatient physical therapy. Ambulated with PT the evening of surgery, 74 feet with FWW. Participated in PT today and ambulated 252 feet with FWW. Is having pain with ROM, able to achieve 9-53 today. Has not completed stairs at this time. Has not participated in OT yet, anticipate session this afternoon. Will need guidance on ADLs. Patient status changed from same day surgery to inpatient, as patient requires further physical and occupational therapy services at this time to be safe for discharge to home. Exam: Dressing on left knee is dry and intact. Mild pedal edema of L foot. Plan: -Continue with physical therapy and occupational therapy sessions while in the hospital -Dressing change to be performed by orthopedic provider tomorrow -Fried was discontinued and IV saline locked this morning -Anticipate discharge to home with home health services when able to safely ambulate and perform ADLs
[2020-12-06] MEDS: Nozin Nasal Sanitizer NASBOTH SCH ×2 (09:04→20:49)
[2020-12-06] MEDS: Docusate Sodium 100 MG Cap PO SCH ×2 (09:05→20:49)
[2020-12-06] MEDS: Estradiol 0.5 MG Tab PO SCH (09:06)
[2020-12-06] MEDS: Enoxaparin 30 MG/0.3 ML Syringe SUBCUT SCH (09:06)
[2020-12-06] MEDS: Hydrochlorothiazide 25 MG Tab PO SCH (09:06)
[2020-12-06] MEDS: buPROPion 150 MG Tab.ER PO SCH (09:12)
[2020-12-06] MEDS: ClonazePAM 0.5 MG Tab PO PRN ×2 (09:40→23:51)
[2020-12-06] MEDS: Magnesium Hydroxide 400 MG/5 ML Susp 30 ML Cup PO PRN (18:36)
[2020-12-06] MEDS: Ondansetron 4 MG/2 ML SDV IVPUSH PRN (19:32)
--- NOTE | 2020-12-06 20:23 | OR ---
DATE OF PROCEDURE: 12/05/2020 SURGEON: Drew Flowers MD PREOPERATIVE DIAGNOSIS: Osteoarthritis, left knee with genu valgum. POSTOPERATIVE DIAGNOSIS: Osteoarthritis, left knee with genu valgum. PROCEDURE: Left total knee arthroplasty using [employer] Person[employer] components with a size 8 femur narrow, size D tibia, 10 mm poly, and 32 mm patella. LONG WALL SHEAR OPERATOR: FELICIA Khan. ANESTHESIA: Spinal with sedation. INDICATIONS: Beth is a 55-year-old female with a history of progressive pain in her left knee for the past couple of years. She has also noted progressive valgus deformity. She has a history of left proximal femur fracture, status post open reduction and internal fixation and has had some increasing pain in the knee since that injury as well. X-rays revealed a genu valgum with increased lateral collapse and [id number] lateral compartment. Now presents for left total knee arthroplasty. Risks, benefits, potential complications of the procedure were discussed. driller's assistant service of FELICIA was utilized in order to manipulate the leg, hold in position, retraction and during skin closure. PROCEDURE IN DETAIL: The patient was brought to the operating room, and after infiltration of the preoperative antibiotic, was noted to have significant generalized reaction and turning red throughout the back and thorax and portion of the extremities. Did not have hives. She noted itching and swelling of the eyes, but no difficulty with breathing. She was medicated with Benadryl and a corticosteroid and had significant improvement. After determining that there was no airway compromise, we proceeded with spinal anesthetic. After adequate spinal was obtained, patient was placed supine with a tourniquet about the left upper thigh. Left leg was prepped and draped in a sterile fashion. Leg was exsanguinated and tourniquet inflated to 300 mmHg pressure. A longitudinal incision was made over the anterior aspect of the knee, carried down through the subcutaneous tissues and a medial parapatellar arthrotomy was performed. The patella was partially everted and the posterior aspect was resected with an oscillating saw. The knee was flexed, revealing complete loss of articular cartilage over the lateral condyle. Lateral femoral condyle was hypoplastic, consistent with her genu valgum. Intramedullary canal was drilled and the intramedullary guide was then placed. Distal femoral cut was then made. Attention was then turned to the tibia. Extramedullary alignment jig was placed, secured to the tibia and a proximal tibia resection was made. Minimal amount was initially taken. After the bone was resected and the remaining meniscus excised, the spacer block was utilized and found to be tight, and an additional 4 mm was taken off the tibia. This allowed the 10 mm spacer block to be placed without difficulty. Attention was returned to the femur which was sized to 8 component and cutting jig was secured and remaining femoral cuts were made. Trial was then placed and an intercondylar notch box cut was made for a posterior cruciate-sacrificing component. Proximal tibia was sized to a D component and a 10 mm trial was placed. This provided full extension and excellent balance in flexion and extension. Rotation was marked and the tibial plate was secured with 2 pins. Proximal tibia was reamed and punch was then placed. The patella was sized to a 32 mm component and the patella was drilled for the pegs. The knee was thoroughly irrigated. Bone surfaces were dried. Components were cemented in place and excess cement was removed. The knee was held in full extension with a 10 mm trial insert as the cement cured. The patella did show tendency for lateral subluxation and a lateral release was performed. The trials were removed. The knee was irrigated once again and the final polyethylene was then snapped into position. Again, showed excellent balance and full extension. The knee was then closed with #2 Ethibond in interrupted fashion. Patella centered well and flexion could be achieved to approximately 135 to 140 degrees. The skin was then closed with 2-0 Vicryl and a running 3-0 Monocryl. Steri- Strips were applied. Light compressive dressing was then placed. The patient tolerated procedure very well. There were no complications, taken from the operating room in stable condition. Drew Flowers MD /[id number] LILLY
[2020-12-06] MEDS ORDERED: Sodium Chloride 0.65% Nasal Spray 45 ML Bottle NAS PRN (22:43)
[2020-12-06] MEDS ORDERED: Sodium Chloride 0.65% Nasal Spray 45 ML Bottle NAS SCH (23:00)
[2020-12-07] MEDS: Acetaminophen/oxyCODONE 325-5 MG Tab PO PRN (05:04)
[2020-12-07] MEDS: Ketorolac 30 MG/ML SDV IVPUSH SCH (05:23)
[2020-12-07] MEDS: Magnesium Hydroxide 400 MG/5 ML Susp 30 ML Cup PO PRN (05:23)
[2020-12-07] MEDS: Docusate Sodium 100 MG Cap PO SCH (08:13)
[2020-12-07] MEDS: Estradiol 0.5 MG Tab PO SCH (08:13)
[2020-12-07] MEDS: buPROPion 150 MG Tab.ER PO SCH (08:13)
[2020-12-07] MEDS: Nozin Nasal Sanitizer NASBOTH SCH (08:14)
[2020-12-07] MEDS: Hydrochlorothiazide 25 MG Tab PO SCH (08:14)
[2020-12-07] MEDS: Enoxaparin 30 MG/0.3 ML Syringe SUBCUT SCH (08:14)
[2020-12-07] MEDS ORDERED: Sodium Phosphate,Monobasic/Sodium Phosphate,Dibasic Enema 133 ML Bottle RECTAL ONE (10:30)
[2020-12-07] MEDS ORDERED: Magnesium Citrate Solution 296 ML Bottle PO ONE (11:30)
[2020-12-07] MEDS: Ondansetron 4 MG/2 ML SDV IVPUSH PRN (12:26)
[2020-12-07 14:24] VITALS: BP 145/83; PULSE 93
--- NOTE | 2020-12-07 15:03 | PCM.DCSUM1 ---
Discharge Summary - Hospital Course Brief History: 55 y/o female with left knee osteoarthritis admitted for surgical management following left total knee arthroplasty. Diagnosis: Stroke: No Modified Genevieve Scale: No Symptoms at All Modified Muir Scale Score: 0 - Discharge Data Discharge Date: 12/07/20 Discharge Disposition: Home, W Home Health Agency 06 Condition: Good - Referral to Home Health Date of Face to Face Encounter: 12/07/20 Reason for Homebound Status: Able to safely ambulate with FWW and perform ADLs with minimal assistance Primary Care Physician: Ramya Ernandez CNM Skilled Need: Dressing change, bathing, ADLs, physical therapy s/p L TKA - Discharge Diagnosis/Problem(s) (1) Status post total left knee replacement SNOMED Code(s): 7331419942956, [id number] ICD Code: Z96.652 - PRESENCE OF LEFT ARTIFICIAL KNEE JOINT Status: Acute - Patient Summary/Data Operative Procedure(s) Performed: Left total knee arthroplasty Consults: Consultations 12/05/20 11:49 Consult to Case Management/Poker Supervisor [CONS] Routine Comment: Physician Instructions: Service(s) to be Consulted: Case Management Reason for Consult: Plan for Discharge PT Evaluation and Treatment [CONS] Routine Please Evaluate and Treat. PT Reason for Consult: Post op Ortho Surgery This query below is only for informational purposes and is not editable. PT Evaluation and Treatment [CONS] Routine Please Evaluate and Treat. PT Reason for Consult: Post op Ortho Surgery Knee Pending Discharge: Yes, 1- 2 days Special Instructions: Schedule first outpatient PT appointment in 3-5 day post discharge. This query below is only for informational purposes and is not editable. 12/06/20 07:39 OT Evaluation and Treatment [CONS] Routine Please Evaluate and Treat. OT Reason for Consult: ADL's Pending Discharge: Yes Discharge Disposition: Home w Home Health This query below is only for informational purposes and is not editable. Admission Diagnosis/Problem: Osteoarthritis Hospital Course: Patient is a pleasant 55 y/o female, s/p L total knee arthroplasty, discharging on POD #2. Patient had an allergic reaction to the pre-op antibiotic (Cefazolin); Benadryl and Decadron were administered and decreased redness and itching for patient. Surgery itself went well with no complications. Patient status changed from same day to inpatient to allow continuation of physical and occupational therapy services for patient to obtain the skills she needed to be safe at home prior to discharge. Pain was fairly well controlled throughout hospital stay. Some discomfort with bending knee, as to be expected post operatively. Tolerated regular diet well, mild nausea on POD#2. Patient was concerned that she did not have a bowel movement by the morning of POD#2; stool prns were utilized and patient successfully had a bowel movement in the afternoon on POD#2. Fried was discontinued on POD#1, IV was saline locked POD#1. Dressing change performed on POD #2 by orthopedic provider; dried blood on dressing, no new drainage, erythema, nor warmth to touch. Incision intact, modest edema of left knee and pedal edema of left foot. New dressing applied to L knee. Patient participated in PT services throughout stay. On POD#1, patient was able to ambulate with FWW up to 200+ ft. On POD#2, was able to ambulate 252 ft with FWW and completed 4 stairs successfully. Able to transfer in and out of bed to chair with minimal assistance. Patient participated in OT services throughout hospital stay. On POD#1, worked on ADLs and required some verbal cues and assistance. By POD#2, able to perform ADLs fairly independently. - Patient Instructions Diet: Usual Diet as Tolerated Activity: Apply Ice, As Tolerated, Full Weight Bearing Driving: Do Not Drive Showering/Bathing: Shower in AM Wound/Incision Care: Keep Operative Site/Wound Site Clean and Dry Notify Provider of: Fever, Increased Pain, Swelling and Redness, Drainage - Discharge Plan *PRESCRIPTION DRUG MONITORING PROGRAM REVIEWED*: Yes *COPY OF PRESCRIPTION DRUG MONITORING REPORT IN PATIENT OMA: Yes Prescriptions/Med Rec: Acetaminophen/oxyCODONE [Percocet 325-5 MG] 1 - 2 tab PO Q6HR PRN 7 Days #40 tab PRN Reason: Pain Home Medications: Home Meds Hydrochlorothiazide 25 mg PO DAILY 02/15/17 [History] estradioL [Estradiol] 0.5 mg PO DAILY 06/09/19 [History] buPROPion HCL [Bupropion Xl] 300 mg PO DAILY 11/07/20 [History] Clindamycin Phosphate 1 applic VAG DAILY 11/16/20 [History] ClonazePAM [KlonoPIN] 0.5 mg PO BID PRN 12/05/20 [History] Acetaminophen/oxyCODONE [Percocet 325-5 MG] 1 - 2 tab PO Q6HR PRN 7 Days #40 tab 12/07/20 [Rx] Aspirin 325 mg PO BID 12/07/20 [History] Oxygen Therapy Mode: Room Air Patient Handouts: Acetaminophen; Oxycodone tablets, Ketorolac injection Referrals: Drew Flowers MD [Physician] - 12/20/20 1:30 pm (Please arrive 15 minutes early to register for your appointment.) - Discharge Summary/Plan Comment DC Time >30 min.: No Discharge Summary/Plan Comment: * Dressing change performed prior to discharge by orthopedic provider * Discharge to home this afternoon with home health referral * Prescription sent for pain medication * Patient educated to take 1 Aspirin BID until orthopedic follow up apt in 2 weeks for VTE prophylaxis * Patient to continue Nozin spray upon discharge * Follow up scheduled with orthopedic clinic in 2 weeks; encouraged to call sooner if any concerns or questions arise * Patient agreeable and expressed understanding of this plan - General Info Date of Service: 12/07/20 Admission Dx/Problem (Free Text: left knee osteoarthritis Functional Status: Reports: Pain Controlled, Tolerating Diet, Ambulating, Urinating - Review of Systems General: Reports: No Symptoms HEENT: Reports: No Symptoms Pulmonary: Reports: No Symptoms Cardiovascular: Reports: No Symptoms Gastrointestinal: Reports: No Symptoms Genitourinary: Reports: No Symptoms Musculoskeletal: Reports: Leg Pain (L knee ), Joint Pain (L knee ), Joint Swelling (L knee ) Skin: Reports: No Symptoms Neurological: Reports: No Symptoms Psychiatric: Reports: Anxiety (mild anxiety about returning home; home health referral in place ) - Patient Data Vitals - Most Recent: Last Vital Signs Temp 98.7 F 12/07/20 14:23 Pulse 93 12/07/20 14:23 Resp 16 12/07/20 14:23 BP 145/83 H 12/07/20 14:23 Pulse Ox 96 12/07/20 14:23 Weight - Most Recent: 177 lb 0.499 oz I&O - Last 24 hours: Intake & Output 12/06/20 12/07/20 12/07/20 22:59 06:59 14:59 Intake Total 2400 1230 Balance 2400 1230 Med Orders - Current: Current Medications Acetaminophen (Tylenol) 650 mg PO Q4H PRN PRN Reason: Pain/Fever Last Admin: 12/07/20 12:21 Dose: 650 mg Documented by: Hydrocodone Bitart/Acetaminophen (Marion 325-5 Mg) 2 tab PO Q4H PRN PRN Reason: Pain (mild 1-3) Last Admin: 12/06/20 11:36 Dose: 2 tab Documented by: Bandage/Support Products ( Nasal Loom Operator) 1 applic NASBOTH BID [facility] Last Admin: 12/07/20 08:14 Dose: 1 applic Documented by: Bupropion HCl (Wellbutrin Xl) 300 mg PO DAILY [facility] Last Admin: 12/07/20 08:13 Dose: 300 mg Documented by: Calcium Carbonate/Glycine (Tums) 1,000 mg PO Q2H PRN PRN Reason: Indigestion Last Admin: 12/05/20 21:29 Dose: 1,000 mg Documented by: Clonazepam (Klonopin) 0.5 mg PO BID PRN PRN Reason: Anxiety Last Admin: 12/06/20 23:51 Dose: 0.5 mg Documented by: Docusate Sodium (Colace) 100 mg PO BID [facility] Last Admin: 12/07/20 08:13 Dose: 100 mg Documented by: Enoxaparin Sodium (Lovenox) 30 mg SUBCUT DAILY [facility] Last Admin: 12/07/20 08:14 Dose: 30 mg Documented by: Estradiol (Estradiol) 0.5 mg PO DAILY [facility] Last Admin: 12/07/20 08:13 Dose: 0.5 mg Documented by: Hydrochlorothiazide (Hydrochlorothiazide) 25 mg PO DAILY [facility] Last Admin: 12/07/20 08:14 Dose: 25 mg Documented by: Magnesium Hydroxide (Milk Of Magnesia) 30 ml PO BID PRN PRN Reason: Constipation Last Admin: 12/07/20 05:23 Dose: 30 ml Documented by: Morphine Sulfate (Morphine) 2 mg IVPUSH Q1H PRN PRN Reason: Breakthrough Pain Last Admin: 12/05/20 21:36 Dose: 2 mg Documented by: Ondansetron HCl (Zofran) 4 mg IVPUSH Q6H PRN PRN Reason: Nausea/Vomiting Last Admin: 12/07/20 12:26 Dose: 4 mg Documented by: Oxycodone/Acetaminophen (Percocet 325-5 Mg) 1 - 2 tab PO Q4H PRN PRN Reason: Pain (moderate 4-6) Last Admin: 12/07/20 05:04 Dose: 2 tab Documented by: Sodium Chloride (Yancey Nasal Bluebell) 0 ml DEBORAH Q4H PRN PRN Reason: Nasal Dryness Last Admin: 12/06/20 22:53 Dose: 1 spray Documented by: Discontinued Medications Dexamethasone (Decadron) Confirm Administered Dose 4 mg .ROUTE .STK-MED ONE Stop: 12/05/20 10:20 Diphenhydramine HCl (Benadryl) Confirm Administered Dose 50 mg .ROUTE .STK-MED ONE Stop: 12/05/20 09:59 Famotidine (Pepcid) 20 mg .ROUTE .STK-MED ONE Stop: 12/05/20 10:21 Fentanyl (Sublimaze) Confirm Administered Dose 100 mcg .ROUTE .STK-MED ONE Stop: 12/05/20 07:25 Fentanyl (Sublimaze) Confirm Administered Dose 100 mcg .ROUTE .STK-MED ONE Stop: 12/05/20 10:34 Cefazolin Sodium/Dextrose 2 gm (/ Premix) 50 mls @ 100 mls/hr IV ONETIME ONE Stop: 12/05/20 09:29 Last Admin: 12/05/20 09:46 Dose: 100 mls/hr Documented by: Lactated Ringer's (Ringers, Lactated) 500 mls @ 999 mls/hr IV ASDIRECTED ONE Stop: 12/05/20 09:00 Lactated Ringer's (Ringers, Lactated) 1,000 mls @ 100 mls/hr IV ASDIRECTED [facility] Last Admin: 12/05/20 08:38 Dose: 100 mls/hr Documented by: Lactated Ringer's (Ringers, Lactated) Confirm Administered Dose 1,000 mls @ as directed .ROUTE .STK-MED ONE Stop: 12/05/20 10:19 Lactated Ringer's (Ringers, Lactated) Confirm Administered Dose 1,000 mls @ as directed .ROUTE .STK-MED ONE Stop: 12/05/20 10:20 Sodium Chloride (Normal Saline) 1,000 mls @ 125 mls/hr IV ASDIRECTED [facility] Last Admin: 12/05/20 23:24 Dose: 125 mls/hr Documented by: Vancomycin HCl 1 gm/ Sodium (Chloride) 250 mls @ 250 mls/hr IV Q12H [facility] Stop: 12/06/20 14:59 Last Admin: 12/06/20 13:53 Dose: 250 mls/hr Documented by: Ketorolac Tromethamine (Toradol) 30 mg IVPUSH Q8H [facility] Stop: 12/07/20 06:01 Last Admin: 12/07/20 05:23 Dose: 30 mg Documented by: Magnesium Citrate (Citrate Of Magnesia) 148 ml PO ONETIME ONE Stop: 12/07/20 11:31 Last Admin: 12/07/20 12:09 Dose: 148 ml Documented by: Midazolam HCl (Versed 1 Mg/Ml) Confirm Administered Dose 2 mg .ROUTE .STK-MED ONE Stop: 12/05/20 07:25 Midazolam HCl (Versed 1 Mg/Ml) Confirm Administered Dose 2 mg .ROUTE .STK-MED ONE Stop: 12/05/20 10:34 Ondansetron HCl (Zofran) Confirm Administered Dose 4 mg .ROUTE .STK-MED ONE Stop: 12/05/20 10:20 Povidone Iodine (Betadine 10% Soln) Confirm Administered Dose 1 ml .ROUTE .STK- MED ONE Stop: 12/05/20 08:49 Last Admin: 12/05/20 11:02 Dose: 30 ml Documented by: Propofol (Diprivan 20 Ml) Confirm Administered Dose 200 mg .ROUTE .STK-MED ONE Stop: 12/05/20 07:25 Propofol (Diprivan 20 Ml) Confirm Administered Dose 200 mg .ROUTE .STK-MED ONE Stop: 12/05/20 11:07 Sodium Biphosphate/Sodium Phosphate (Fleet Enema) 133 ml RECTAL ONETIME ONE Stop: 12/07/20 10:31 Last Admin: 12/07/20 10:12 Dose: 133 ml Documented by: - Exam General: Reports: Alert, Oriented, Cooperative Extremities: Pedal Edema (Left foot ), Joint Swelling (Left knee ), Leg Pain (Left ), Limited Range of Motion (Left knee ) Skin: Reports: Dry, Intact Wound/Incisions: Reports: Dressing Dry and Intact, No Drainage Neurological: Reports: No New Focal Deficit Psy/Mental Status: Reports: Alert, Normal Affect
== END 2020-12-07 15:13 | disposition home health service (06) | DRG 470 ==
LOC: JP.SDS 07:38 → JP.MS 11:49 → JP.SDS 12-06 10:36
PROVIDERS: ADMIT Specialist; ATTEND Specialist
PROC: 0SRD0JZ Replacement of Left Knee Joint with Synthetic Substitute, Open Approach (ICD-10-PCS; principal; 2020-12-06)
DX: M17.12 Unilateral primary osteoarthritis, left knee (principal); F60.3 Borderline personality disorder; F32.9 Major depressive disorder, single episode, unspecified; Z87.891 Personal history of nicotine dependence; Z79.82 Long term (current) use of aspirin; Z79.899 Other long term (current) drug therapy; Z90.710 Acquired absence of both cervix and uterus; Z98.890 Other specified postprocedural states
CPT/HCPCS: 36415; 73560-26-LT; 73560-LT; 86850; 86900; 86901; 97110-GP; 97116-GP; 97162-GP; 97165-GO; 97530-GP; 97535-GO; 97535-GP; A9270-GY; C1713; C1776; J0690; J1100; J1200; J1650; J1885; J2250; J2270; J2405; J2704; J3010; J3370; J3490; J7030; J7050; J7120

== ENCOUNTER 2021-05-11 19:34 | Emergency (ER) | payer MEDICAID | END 2021-05-11 20:33 | disposition left against medical advice (07) | LOC: JP.ED 19:34 | DX: Z53.21 Procedure and treatment not carried out due to patient leaving prior to being seen by health care provider (principal) ==

== ENCOUNTER 2021-11-16 07:42 | Day surgery (SDC) | payer MEDICAID ==
[2021-11-16] MEDS ORDERED: Sodium Chloride 0.9% 1,000 ML IV SCH (08:15)
[2021-11-16 10:41] VITALS: BP 145/86; PULSE 61
== END 2021-11-16 11:01 | disposition home or self-care (01) ==
LOC: JP.SDS 07:42
PROVIDERS: ATTEND Surgery
DX: Z12.11 Encounter for screening for malignant neoplasm of colon (principal); K21.9 Gastro-esophageal reflux disease without esophagitis; Z87.891 Personal history of nicotine dependence; Z88.8 Allergy status to other drugs, medicaments and biological substances
CPT/HCPCS: J2250; J2704; J3010; J3490; J7030

== ENCOUNTER 2021-11-24 09:36 | Day surgery (SDC) | payer MEDICAID ==
[2021-11-24] MEDS ORDERED: Sodium Chloride 0.9% 1,000 ML IV SCH (10:00)
[2021-11-24] MEDS ORDERED: Propofol 200 MG/20 ML SDV ONE (10:58)
[2021-11-24 12:08] VITALS: BP 141/75; PULSE 59
== END 2021-11-24 12:30 | disposition home or self-care (01) ==
LOC: JP.SDS 09:36
PROVIDERS: ATTEND Surgery
DX: Z12.11 Encounter for screening for malignant neoplasm of colon (principal); K57.30 Diverticulosis of large intestine without perforation or abscess without bleeding; Z80.0 Family history of malignant neoplasm of digestive organs; Z87.891 Personal history of nicotine dependence
CPT/HCPCS: 45378; J2250; J2704; J3010; J7030

== ENCOUNTER 2022-05-01 09:09 | Emergency (ER) | payer MEDICAID ==
[2022-05-01 09:33] VITALS: BP 167/77; PULSE 102
[2022-05-01 10:35] LABS: CORONAVIRUS COVID-19 NAA NEGATIVE (NEGATIVE)
[2022-05-07 14:10] LABS: HGE IGG TITER Negative (Neg:<1:64); HGE IGM TITER Negative (Neg:<1:20)
== END 2022-05-01 11:08 | disposition home or self-care (01) ==
LOC: JP.ED 09:09
DX: A69.20 Lyme disease, unspecified (principal); I10 Essential (primary) hypertension; F17.210 Nicotine dependence, cigarettes, uncomplicated; Z88.1 Allergy status to other antibiotic agents; Z91.030 Bee allergy status; Z79.899 Other long term (current) drug therapy; Z90.710 Acquired absence of both cervix and uterus; Z20.822 Contact with and (suspected) exposure to COVID-19
CPT/HCPCS: 0241U; 85025; 86617; 86618; 86666; 99283